=== PATIENT | female | born 1975 | race Caucasian/White ===

== ENCOUNTER 2019-04-23 13:58 | Emergency (ER) | payer BC, OTHER ==
[2019-04-23 14:04] VITALS: BP 131/82; PULSE 93; TEMP 98.3; BMI 24.9
--- NOTE | 2019-04-23 15:10 | PDOC ---
History of Present Illness - General Chief Complaint: Pain, Acute Stated Complaint: PAIN/DIFF BREATHING Time Seen by Provider: 04/23/19 15:09 History Source: Patient - History of Present Illness Initial Comments: 04/23/19 15:17 Chief complaint: Right-sided pain Patient is a 43-year-old female with a history of thyroidectomy, asthma, Crohn's , elevated cholesterol who last week had flulike symptoms, went to urgent care, flu was negative and she was put on a Z-Michael. Patient states the fever is gone away but now she has severe right upper abdominal pain. He gets worse after eating. Vomited last night, no diarrhea and no dysuria GENERAL/CONSTITUTIONAL: No fever, weakness. dizziness HEAD, EYES, EARS, NOSE AND THROAT: No change in vision. No ear pain or discharge. No sore throat. CARDIOVASCULAR: No chest pain RESPIRATORY: +shortness of breath or cough GASTROINTESTINAL: + pain, nausea, vomiting, no: Diarrhea or constipation GENITOURINARY: No dysuria MUSCULOSKELETAL: No neck or back pain SKIN: No rash NEUROLOGIC: No headache, vertigo, loss of consciousness, or loss of sensation. GENERAL: The patient is awake, alert, and fully oriented, in no acute distress. HEAD: Normal with no signs of trauma. EYES: Pupils equal, round and reactive to light, sclera anicteric, conjunctiva clear. ENT: pharynx: no erythema, no exudate, uvula midline NECK: supple CHEST: clear, nontender, rr, some coughing ABD: soft, right upper quadrant tenderness BACK: no tenderness or signs of injury EXTREMITIES: Normal range of motion, no edema. NEUROLOGICAL: Normal speech, normal gait. SKIN: Warm, Dry GENERAL: The patient is awake, alert, and fully oriented, in no acute distress. HEAD: Normal with no signs of trauma. EYES: Pupils equal, round and reactive to light, sclera anicteric, conjunctiva clear. ENT: pharynx: no erythema, no exudate, uvula midline NECK: supple CHEST: clear, nontender, rr ABD: soft, nontender BACK: no tenderness or signs of injury EXTREMITIES: Normal range of motion, no edema. NEUROLOGICAL: Normal speech, normal gait. SKIN: Warm, Dry Past History - Past Medical History Allergies/Adverse Reactions: Allergies Allergy/AdvReac Type Severity Reaction Status Date / Time nitrofurantoin Allergy Verified 04/23/19 14:04 [From Macrobid] Penicillins Allergy Verified 04/23/19 14:04 Home Medications: Ambulatory Orders Benzonatate [Tessalon Pearls -] 200 mg PO TID #42 cap 04/23/19 Hydrocodone Bit/Homatrop Me-Br [Hydrocodone Compound Syrup] 5 ml PO QID PRN # 120 ml MDD 20 04/23/19 Levothyroxine [Synthroid -] 112 mcg PO DAILY 04/23/19 Methylprednisolone [Medrol Dose Michael] 4 mg PO ASDIR #21 tablet 04/23/19 Rosuvastatin Calcium [Crestor] 10 mg PO DAILY 04/23/19 COPD: No Hypercholesterolemia: Yes Thyroid Disease: Yes - Psycho Social/Smoking Cessation Hx Smoking History: Never smoked *Physical Exam - Vital Signs Last Vital Signs Temp Pulse Resp BP Pulse Ox 98.3 F 93 H 18 131/82 99 04/23/19 14:02 04/23/19 14:02 04/23/19 14:02 04/23/19 14:02 04/23/19 14:04 ED Treatment Course - LABORATORY CBC & Chemistry Diagram: 04/23/19 15:25 04/23/19 15:25 Medical Decision Making - Medical Decision Making 04/23/19 20:15 43 yo with right flank pain, cough after uri last week. flu negative at urgent care last week. no fever now. vomited yesterday. hx of asthma, uc, gall bladder sludge a long time ago. no ocp. no travel. pt will get labs, us abdomen, chest xray. likely related to uri but will evaluated gallbladder. us no acute cholecystitis.slight bump in alkphos. chest xray clear. given duoneb. given level of pain and dyspnea will do d-dimer. d-dimer elevated. cta done cta shows no acute findings. does have gallstone, no wall thickening. pt coughing, no wheezing. given solumedrol, toradol, another duoneb. pt has albuterol inhaler at home. will give steroids, tesselon perles and hycodan. pt states they are calling her regarding follow up since she does not have adoctor she will refrain from fatty or greasy foods and have further eval of gallbladder. Discharge - Discharge Information Problems reviewed: Yes Clinical Impression/Diagnosis: Bronchitis Gallstone Qualifiers: Cholecystitis presence: without cholecystitis Biliary obstruction: without biliary obstruction Qualified Code(s): K80.20 - Calculus of gallbladder without cholecystitis without obstruction Condition: Stable Disposition: HOME - Admission No - Additional Discharge Information Prescriptions: Benzonatate [Tessalon Pearls -] 200 mg PO TID #42 cap Hydrocodone Bit/Homatrop Me-Br [Hydrocodone Compound Syrup] 5 ml PO QID PRN # 120 ml MDD 20 PRN Reason: Cough Methylprednisolone [Medrol Dose Michael] 4 mg PO ASDIR #21 tablet Prescription Drug Monitoring Program (I-STOP) results: I-STOP not reviewed - Follow up/Referral - Patient Discharge Instructions Patient Printed Discharge Instructions: DI for Acute Bronchitis Additional Instructions: drink at least 2 liters fluid daily. motrin 600 mg every 6 hours for pain use albuterol inhaler 2 puffs every 4 hours . starting tomorrow start medrol dose pack take pepcid 20 mg daily to protect your stomach from steroids kaylin thomas for cough and if needed hycodan as directed for cough follow up with doctor as directed return to er if worse - Post Discharge Activity
[2019-04-23] MEDS ORDERED: ACETAMINOPHEN 1000 MG/100 ML VIAL (NON FORMULARY) IVPB ONE (15:15)
[2019-04-23] MEDS ORDERED: ACETAMINOPHEN INJECTION 100 ML IVPB ONE (15:18)
[2019-04-23 15:41] LABS: BASO % 0.5 % (0-2.0); EOS % 0.9 % (0-4.5); HEMATOCRIT 31.1 % (32.4-45.2); HEMOGLOBIN 10.4 GM/dL (10.7-15.3); LYMPH % 16.6 % (8-40); MCH 29.4 pg (25.7-33.7); MCHC 33.5 g/dl (32.0-36.0); MEAN CELL VOLUME 87.8 fl (80-96); MEAN PLT VOLUME 6.4 fl (7.5-11.1); MONO % 7.1 % (3.8-10.2); NEUT % 74.9 % (42.8-82.8); PLATELET COUNT 485 K/MM3 (134-434); RBC 3.54 M/mm3 (3.60-5.2); RDW 13.4 % (11.6-15.6); WHITE BLOOD COUNT 8.7 K/mm3 (4.0-10.0)
[2019-04-23 15:58] LABS: INR 1.08 (0.83-1.09); PROTHROMBIN TIME (PATIENT) 12.7 SEC (9.7-13.0)
[2019-04-23 16:00] LABS: EPI CELLS 0.7 /HPF (0-5/HPF); HYALINE CASTS 1 /lpf (0-8); PH,URINE 6.5 (5.0-8.0); URINE APPEARANCE CLEAR; URINE BACTERIA 57.8 /hpf (NEGATIVE); URINE BILIRUBIN NEGATIVE (NEGATIVE); URINE COLOR YELLOW; URINE GLUCOSE (UA) NEGATIVE (NEGATIVE); URINE KETONE NEGATIVE (NEGATIVE); URINE LEUK ESTERASE NEGATIVE (NEGATIVE); URINE NITRITE NEGATIVE (NEGATIVE); URINE PROTEIN NEGATIVE (NEGATIVE); URINE RBC 6 /hpf (0-4); URINE UROBILINOGEN 0.2 mg/dL (0.2-1.0); URINE WBC 1 /hpf (0-5)
[2019-04-23 16:10] LABS: ALBUMIN 3.2 g/dl (3.4-5.0); BILIRUBIN,TOTAL 0.2 mg/dL (0.2-1); BLOOD UREA NITROGEN 8.6 mg/dL (7-18); CALCIUM 8.8 mg/dL (8.5-10.1); CREATININE 0.6 mg/dL (0.55-1.3); POTASSIUM 3.5 mmol/L (3.5-5.1); TOT PROT 7.4 g/dl (6.4-8.2)
[2019-04-23] MEDS ORDERED: ALBUTEROL SO4 2.5/IPRATROPIUM 0.5 INH SOL 3 ML VIAL.NEB. NEB ONE ×3 (16:49→20:05)
[2019-04-23] MEDS ORDERED: methylPREDNISolone NA SUCC 125 MG/2 ML VIAL IVPUSH ONE (18:59)
[2019-04-23] MEDS ORDERED: methylPREDNISolone NA SUCC 125 MG/2 ML VIAL ONE (19:44)
[2019-04-23] MEDS ORDERED: KETOROLAC TROMETHAMINE 30 MG/1 ML VIAL IVPUSH ONE (19:59)
[2019-04-23] MEDS ORDERED: KETOROLAC TROMETHAMINE 30 MG/1 ML VIAL ONE (20:05)
== END 2019-04-23 20:55 | disposition home or self-care (01) ==
LOC: JER 13:58
PROC: 3E0F7GC Introduction of Other Therapeutic Substance into Respiratory Tract, Via Natural or Artificial Opening (ICD-10-PCS; principal; 2019-04-23)
PROC: 3E0F7GC Introduction of Other Therapeutic Substance into Respiratory Tract, Via Natural or Artificial Opening (ICD-10-PCS; 2019-04-23)
PROC: 3E033NZ Introduction of Analgesics, Hypnotics, Sedatives into Peripheral Vein, Percutaneous Approach (ICD-10-PCS; 2019-04-23)
PROC: 3E0333Z Introduction of Anti-inflammatory into Peripheral Vein, Percutaneous Approach (ICD-10-PCS; 2019-04-23)
DX: K80.20 Calculus of gallbladder without cholecystitis without obstruction (principal); J40 Bronchitis, not specified as acute or chronic; E78.00 Pure hypercholesterolemia, unspecified; Z87.19 Personal history of other diseases of the digestive system; E89.0 Postprocedural hypothyroidism; Z88.0 Allergy status to penicillin; Z88.8 Allergy status to other drugs, medicaments and biological substances
CPT/HCPCS: 36415; 71046-TC-FY; 71275-TC; 76700-TC; 80053; 81003; 85025; 85379; 85610; 87086; 87804; 99283-25; J0131; Q9967